=== PATIENT | female | born 1955 | race Caucasian/White ===

== ENCOUNTER 2024-07-21 13:17 | Emergency (ER) | payer SELFPAY ==
--- OUTSIDE RECORDS SUMMARY | 2024-07-21 13:19 | XMS_ITS | Clinical Summary ---
Author Organization [facility] Address [address] [place] [address] Care Team Providers Care Nailhead Puncher Name Role Phone Jodi Swain DDS Primary Care Provider [phone] Source Comments PLEASE NOTE, if this patient is a minor, it may be UNLAWFUL to discuss sensitive information that is contained in these records (such as FAMILY PLANNING, MENTAL HEALTH or SUBSTANCE ABUSE) with the minor patient's parent or other person without the patient's specific authorization.[facility] Social History Tobacco Use Types Packs/Day Years Used Date Smoking Tobacco: Never Assessed Social Connections Answer Date Recorded Connectedness 0 12/21/2023 Financial Resource Strain Answer Date R ecorded Financial Resource Strain 0 2022 Stress Answer Date Recorded Stress 0 03/21/2023 Physical Activity Answer Date Recorded Physical Activity 0 03/21/2023 Food Insecurity Answer Date Recorded Food 0 01/01/2024 Transportation Needs Answer Date Record ed Transportation 0 03/21/2023 Housing Stability Answer Date Recorded Housing 0 03/21/2023 Safety and Environment Answer Date Dexter rded Safety 0 03/21/2023 Utilities Answer Date Recorded Utilities 0 03/21/2023 Employment Answer Date Recorded Stress 0 12/21/2023 Comments Unknown Sex and Gender Information Value Date Recorded Sex Assigned at Not on file Legal Sex Female 12:11 PM PST Gender Identity Female 05/06/2023 3:14 PM PST Sexual Orientation Straight 05/06/2023 3: 14 PM PST Plan of Treatment Health Maintenance Due Date Last Done Comments Hepatitis C Screening 1955 Lipid Screening 1955 Tobacco Screening 1956 Hypertension Screening (#1) 1974 Imm-DTaP/Tdap/Td (1 - Tdap) 09/15/1975 Breast Cancer Screening (Mammogram) 1996 CT Colonography 2001 Colonoscopy 2001 Colorectal Cancer Screening 2001 FIT/gFOBT 2001 Fecal DNA 2001 Flexible Sigmoidoscopy 2001 Imm-Pneumococcal 65+ (1 of 1 - PCV) 2006 Imm-Zoster, Recombinant (1 of 2) 2006 Bone Density Screening 2021 Falls Prevention 2021 [id number] ( season) 2023 Imm-Influenza (#1) 2023 Alcohol and Drug Screen 04/07/2024 Depression Annual Screen 04/07/2024 Diabetes Screening 06/08/2027 06/07/2024, 1 04/12/2023, 11/11/2023, Additional history exists Care Teams Nailhead Puncher Relationship Specialty Start Date End Date Jodi Swain DDS [address] [place] [id number] PCP - General 05/06/23
--- OUTSIDE RECORDS SUMMARY | 2024-07-21 13:19 | XMS_ITS | Clinical Summary ---
Author Organization [facility] [facility] Address Formerly [facility] [place] [address] Care Team Providers Care Beauty Sales Consultant Name Role Phone Cassy Ramírez Primary Care Provider [facility] Unavailable Modesto Singer HUMAN RESOURCES SERVICES SPECIALIST Unavailable [phone] Sofia Ordoñez MD Unavailable [phone] Stacie Carballo NP Unavailable Allergies No known active allergies Medications aspirin enteric coated 81 mg tabletIndications :Diabetes mellitus type II TAKE ONE TABLET BY MOUTH DAILY WITH A MEAL 100 tablet 3 11/15/19 11 Active Additional Information Patient taking differently:81 mg Oral DAILY WITH MEAL,patient not taking, Reported on 07/13/2024 blood sugar diagnostic (GLUCOCARD 01 SENSOR PLUS) stripIndications: Type 2 diabetes mellitus with diabetic retinopathy and without macular edema, unspecified retinopathy severity Test once daily 50 Each PRN 08/04/19 16 Active MEDICAL SUPPLY, MISCELLANEOUS (GRADUATED COMPRESSION STOCKINGS)Indicat ions:Varicose veins of legs Length: thigh Strength: 20-30 mmHg 1 Packet 11 05/14/19 18 Active acetaminophen (TYLENOL) 325 mg tablet Take 2 tablets by mouth every 4 hours if needed. Max acetaminophen dose: 4000mg in 24 hrs. 01/07/20 18 Active WalkerIndications :Closed fracture of olecranon process of left ulna, sequela,Closed nondisplaced fracture of left patella with routine healing, unspecified fracture morphology, subsequent encounter Platform for left side of walker and Walker with front wheels for home use. 1 Device 01/20/20 18 Active Diabetic ShoeIndications:F oot callus,Diabetes mellitus type 2, uncontrolled, with complications,Juan ateral leg edema As directed. 1 Device 08/05/19 19 Active multivitamin (MVI) tabletIndications :Diabetes mellitus type 2, uncontrolled, with complications Take 1 tablet by mouth once daily. 90 tablet 3 08/23/19 20 Active multivitamin (MVI) tabletIndications :Controlled type 2 diabetes mellitus without complication, without long-term current use of insulin (HC) Take 1 Tablet by mouth once daily. 90 Tablet 3 08/06/19 24 Active losartan (COZAAR) 100 mg tabletIndications :Hypertension, unspecified type Take 1 Tablet (100 mg) by mouth once daily. 90 Tablet 3 11/11/19 24 Active prednisoLONE acetate 1% ophthalmic (Pred Forte) suspensionIndicat ions:Nuclear sclerotic cataract of left eye Start drops in affected eye after surgery 12/29/23 Left eye. One drop four times a day for three weeks. 5 mL 1 12/30/19 24 Active ketorolac 0.4 % (ACULAR LS) 0.4 % ophthalmic solutionIndicatio ns:Nuclear sclerotic cataract of left eye Start drops in affected eye after surgery Left. One drops four times a day for three weeks. 5 mL 1 12/30/19 24 Active glipiZIDE (GLUCOTROL) 10 mg tabletIndications :Controlled type 2 diabetes mellitus without complication, without long-term current use of insulin (HC) TAKE 1 TABLET BY MOUTH TWICE DAILY BEFORE A MEAL. Dose increase 180 Tablet 1 02/11/20 24 Active metFORMIN (GLUCOPHAGE) 1,000 mg tabletIndications :Controlled type 2 diabetes mellitus without complication, without long-term current use of insulin (HC) Take 1 Tablet (1,000 mg) by mouth two times daily with meals. 180 Tablet 1 02/11/20 24 Active pioglitazone (ACTOS) 15 mg tabletIndications :Controlled type 2 diabetes mellitus without complication, without long-term current use of insulin (HC) Take 1 Tablet (15 mg) by mouth once daily. 90 Tablet 1 02/11/20 24 Active simvastatin (ZOCOR) 40 mg tabletIndications :Hyperlipidemia, unspecified hyperlipidemia type Take 1 Tablet (40 mg) by mouth at bedtime. 90 Tablet 1 02/11/20 24 Active hydroCHLOROthiazi de 25 mg tabletIndications :Hypertension, unspecified type Take 1 Tablet (25 mg) by mouth once daily. 90 Tablet 1 02/11/20 24 Active gabapentin (NEURONTIN) 100 mg capsuleIndication s:Foot pain, left Take 1 Capsule (100 mg) by mouth at bedtime. 90 Capsule 1 02/11/20 24 Active Additional Information Patient taking differently:100 mg Oral BEDTIME,Patient states not taking due not sleeping, Reported on 07/13/2024 pramipexole (MIRAPEX) 0.125 mg tabletIndications :RLS (restless legs syndrome) 1-2 tab by mouth 2-3 hours before bedtime 90 Tablet 3 04/28/19 25 Active oxyCODONE-acetami nophen (PERCOCET) 5-325 mg per tabletIndications :Invasive ductal carcinoma of breast, female, left (HC) Take 1 Tablet by mouth every 6 hours if needed for Pain. Max acetaminophen dose: 4000mg in 24 hrs. 15 Tablet 5 9:02 AM DISTRIBUTION TRANSFORMER ASSEMBLER 05/05/19 25 Active Additional Information Patient taking differently:1 Tablet Oral Q 6H PRN, Pain, Max acetaminophen dose: 4000mg in 24 hrs.not currently taking, Reported on 07/13/2024 ibuprofen (ADVIL; MOTRIN) 600 mg tabletIndications :Invasive ductal carcinoma of breast, female, left (HC) Take 1 Tablet (600 mg) by mouth every 6 hours if needed for Pain. Maximum of 3200 mg in 24 hours. 30 Tablet 5 9:02 AM DISTRIBUTION TRANSFORMER ASSEMBLER 05/05/19 25 Active sennosides-docusa te (SENOKOT S) (8.6-50 mg) tabletIndications :Invasive ductal carcinoma of breast, female, left (HC) Take 1 Tablet by mouth two times daily. 20 Tablet 5 9:02 AM DISTRIBUTION TRANSFORMER ASSEMBLER 05/05/19 25 Active Additional Information Patient taking differently:1 Tablet Oral BID,Patient states doesn't need, Reported on 07/13/2024 sennosides-docusa te, 8.6-50 mg, (SENNA-S) 8.6-50 mg tablet Take 1 tablet by mouth 2 times daily. 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 associated with type 2 diabetes mellitus 04/28/2024 Invasive ductal carcinoma of breast, female, lef t 04/09/2024 Hyperopia of both eyes with astigmatism and pres byopia 12/03/2021 Pseudophakia, right eye 12/03/2021 Cortical senile cataract, left 12/03/2021 Venous insufficiency 05/02/2020 Controlled type 2 diabetes m ellitus without complication, without long-term current use of insulin 05/20/2018 Controlled type 2 diabetes m ellitus without complication, without long-term current use of insulin 05/20/2018 Controlled type 2 diabetes m ellitus without complication, without long-term current use of insulin 03/10/2018 Onychomycosis 06/24/2017 Arcus senilis 05/24/2013 Osteoporosis 01/19/2013 HTN (hypertension) 05/01/2010 Proximal humerus fracture 04/18/2010 Diabetes mellitus, type 2 09/05/2009 Resolved Problems Problem Noted Date Diagnosed Date Resolved Date History of 2019 novel argueta virus disease (COVID-19) 02/13/2020 02/13/2020 Mild nonproliferative diabet ic retinopathy(362.04) 10/21/2014 06/28/2022 Encounters Date Type Department Care Team Description 07/19/2024 3:30 PM CDT - 07/19/2024 11:59 PM CDT Hospital Encounter [facility] Rad[facility] Oncology - [facility] [address] [place] [address] Herlinda Escalante MD Malignant neoplasm of lower-inner quadrant of left breast in female, estrogen receptor positive (HC) (Primary Dx) 07/19/2024 3:28 PM CDT - 07/19/2024 3:29 PM CDT Hospital Encounter [facility] Radiation Oncology - [address] [address] Herlinda Escalante MD Malignant neoplasm of lower-inner quadrant of left female breast, unspecified estrogen receptor status (HC) 07/19/2024 1:59 PM CDT - 07/19/2024 3:27 PM CDT Hospital Encounter [facility] Radiation Oncology - [facility] [address] [place] [address] Herlinda Escalante MD Malignant neoplasm of lower-inner quadrant of left breast in female, estrogen receptor positive (HC) (Primary Dx); Malignant neoplasm of left female breast, unspecified estrogen receptor status, unspecified site of breast (HC) 07/19/2024 Orders Only [facility] Rad[facility] Oncology - [facility] [address] [facility] [address] [place] [address] Herlinda Escalante MD <No scans attached> 07/19/2024 Travel 07/13/2024 1:15 PM CDT Office Visit [address] [address] De Garcia DPM Consult (Left foot ulcer) 07/13/2024 Travel 07/09/2024 Telephone [facility] Radiation Oncology [facility] [address] [place] [address] Herlinda Escalante MD Appointment 07/08/2024 2:30 PM CDT Office Visit [address] [address] Sofia Garcia DO Follow Up (discuss options) 07/08/2024 Travel 06/29/2024 Telephone [facility] [address] [place] [address] Sofia Garcia DO schedule appt with Dr Arguello 06/22/2024 3:00 PM CDT Office Visit [facility] [address] [place] [address] Sofia Ordoñez MD Consult 06/22/2024 Travel 06/08/2024 Telephone [facility] [address] [place] [address] Cassy Ramírez PA Results 06/07/2024 7:30 AM DISTRIBUTION TRANSFORMER ASSEMBLER Office Visit [facility] [address] [place] [address] Cassy Ramírez PA Diabetes (3 month check - unable to afford Pioglitazone); Foot Problem (Continued L foot/heel pain) 06/07/2024 Travel 05/27/2024 8:15 AM DISTRIBUTION TRANSFORMER ASSEMBLER Ancillary Procedure [facility] [address] [place] [address] 05/27/2024 7:30 AM DISTRIBUTION TRANSFORMER ASSEMBLER Office Visit [facility] [address] [place] [address] Joe Washington MD Foot Problem (LT foot - hit heel about a month- feeling painful and hard to walk ) 05/27/2024 Travel 05/20/2024 3:30 PM DISTRIBUTION TRANSFORMER ASSEMBLER Office Visit [address] [address] Sofia Garcia DO Post-op (post op lumpectomy) 05/20/2024 Travel 05/20/2024 Telephone [facility] Cancer [facility] [address] [place] [address] [place], [facility] Cancer Referral 05/06/2024 Patient Outreach [facility] [address] [place] [address] Stephanie Rae assistant professor of biochemistry Followup (Magnetic seed guided left breast lumpectomy with sentinel lymph node biopsy) 05/05/2024 1:13 PM DISTRIBUTION TRANSFORMER ASSEMBLER Anesthesia Event [facility] [address] [place] [address] Erlinda Juarez CRNA 05/05/2024 12:50 PM DISTRIBUTION TRANSFORMER ASSEMBLER - 05/05/2024 3:45 PM DISTRIBUTION TRANSFORMER ASSEMBLER Surgery [facility] [address] [place] [address] Sofia Garcia DO Magnetic seed guided left breast lumpectomy with sentinel lymph node biopsy 05/05/2024 9:30 AM DISTRIBUTION TRANSFORMER ASSEMBLER - 05/05/2024 6:35 PM DISTRIBUTION TRANSFORMER ASSEMBLER Hospital Encounter [facility] [address] [place] [address] Sofia Garcia DO Invasive ductal carcinoma of breast, female, left (HC) (Primary Dx); Invasive ductal carcinoma of breast, left (HC) Discharge Disposition: Home Self Care 05/04/2024 8:00 AM DISTRIBUTION TRANSFORMER ASSEMBLER - 05/04/2024 11:59 PM DISTRIBUTION TRANSFORMER ASSEMBLER Hospital Encounter [facility] [address] [place] [address] Sofia Garcia DO Invasive ductal carcinoma of breast, left (HC) 05/04/2024 Travel 04/28/2024 11:50 AM DISTRIBUTION TRANSFORMER ASSEMBLER Office Visit [facility] [address] [place] [address] Cassy Ramírez PA Preoperative Exam (lumpectomy) 04/28/2024 Travel from Last 3 Months Immunizations Immunization Administration Dates Next Due COVID-19 vaccine (Pfizer-Bio NTech 30mcg/0.3mL) 12YO+ BRYANT-SUCROSE PF, MDV 10/22/2021 COVID-19 vaccine (Pfizer-Bio NTech 30mcg/0.3mL) PF, MDV 05/17/2021,07/22/2020,07/01/2020 Hepatitis B (Adult) 10/13/2013,12/16/2012 Influenza, IIV3 (Age >=3 years) 12/16/2012,02/05 Influenza, IIV4 02/03/2019, 7,02/20/2016,2013 Influenza, IIV4 (=>6mos) MDV 01/05/2018 Pneumococcal conj 13-Valent (Prevnar 13) 08/19/2018 Tdap 09/05/2009 Family History Medical History Relation Name Comments Diabetes Brother 3 1/2 brothers, different father Good Health Mother healthy, age 90 Anesthesia Problem No Family History Blood Disease No Family History Cancer-breast No Family History Cancer-ovarian No Family History Relation Name Status Comments Brother Father accident Mother Social History Tobacco Use Types Packs/Day Years Used Date Smoking Tobacco: Former Cigarettes 0.3 20 0 04/07/1991 - 04/07/2011 Smokeless Tobacco: Never Tobacco Cessation:Counseling Given: Yes Alcohol Use Standard Drinks/Week Comments No 0 (1 standard drink = 0.6 oz pur e alcohol) PHQ-2 Answer Date Recorded PHQ-2 Score 1 06/07/2018 Financial Resource Strain Answer Date R ecorded Difficulty of Paying Living Expenses Not on file 04/07/2021 Difficulty of Paying Living Expenses Not on file 04/07/2021 Food Insecurity Answer Date Recorded Do you worry your food will run out before you are able to buy more? 2 08/06/2023 Transportation Needs Answer Date Record ed Does lack of transportation keep you from medica l appointments? 2 08/06/2023 Does lack of transportation keep you from work, meetings or getting things that you need? 2 08/06/2023 Housing Stability Answer Date Recorded What is your housing situation today? 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 on file Not on file Not on file Obstetrics History Para Term AB IAB SAB Ectopic Multiple Livin g Live Births 7 7 7 5 Date Outcome GA Total Labor Labor/2nd/3rd Weight Sex Type Anes PTL Emily A1 A5 Name Clin Term Term Term Term Term Term Term Last Filed Vital Signs Vital Sign Reading Time Taken Comments Blood Pressure 149/80 07/13/2024 1:26 PM CDT Pulse 81 07/13/2024 1:26 PM CDT Temperature 36.6 C (97.9 F) 06/22/2024 3:12 PM CDT Respiratory Rate 16 06/22/2024 3:12 PM CDT Oxygen Saturation 98% 07/13/2024 1:26 PM CDT Inhaled Oxygen Concentration - - Weight 57.1 kg (125 lb 12.8 oz) 07/19/2024 3:27 PM CDT Height 152.7 cm (5' 0.12) 06/22/2024 3:13 PM CD T Body Mass Index 24.47 06/22/2024 3:13 PM CDT Plan of Treatment Upcoming Encounters Date Type Department Care Team (Late st Contact Info) Description 07/28/2024 3:15 PM CDT Appointment [facility] [address] [place] [address] Urbano Aparna, PT [address] [place] [address] 07/29/2024 3:30 PM CDT Appointment [facility] Radiation Oncology [address] [address] Herlinda Escalante MD [address] [address] 07/29/2024 4:00 PM CDT Appointment [facility] Radiation Oncology [address] [address] Herlinda Escalante MD [address] [address] 07/30/2024 3:30 PM CDT Appointment [facility] Radiation Oncology [address] [address] Herlinda Escalante MD [address] [address] 08/02/2024 2:45 PM CDT Appointment [facility] Radiation Oncology [address] [address] Herlinda Escalante MD [address] [address] 08/03/2024 3:30 PM CDT Appointment [facility] Radiation Oncology [address] [address] Herlinda Escalante MD [address] [address] 08/04/2024 3:00 PM CDT Appointment [facility] Radiation Oncology [address] [address] Herlinda Escalante MD [address] [address] 08/05/2024 2:45 PM CDT Appointment [facility] Radiation Oncology - [address] [address] Herlinda Escalante MD [address] [address] 08/05/2024 3:15 PM CDT Appointment [facility] Radiation Oncology - [address] [address] Herlinda Escalante MD [address] [address] 08/06/2024 3:30 PM CDT Appointment [facility] Radiation Oncology [address] [address] Herlinda Escalante MD [address] [address] 08/09/2024 3:30 PM CDT Appointment [facility] Radiation Oncology [address] [address] Herlinda Escalante MD [address] [address] 08/10/2024 3:30 PM CDT Office Visit [facility] [address] [place] [address] De Garcia DPM [address] [place] [address] 08/10/2024 3:30 PM CDT Appointment [facility] Radiation Oncology - [facility] [address] [place] [address] Herlinda Escalante MD [address] [id number] [place] [address] 09/07/2024 2:45 PM CDT Appointment [facility] Radiation Oncology [facility] [address] [place] [address] Herlinda Escalante MD [address] [address] 09/21/2024 1:45 PM CDT Office Visit [facility] [address] [place] [phone] Stacie Carballo, MANAGER OB [address] [place] [address] Health Maintenance Due Date Last Done Comments Zoster (shingles) series for age 50+ (1 of 2) 09/15/1975 RSV vaccine for adults or (1 - Risk 60-74 years 1-dose series) 2016 Pneumococcal series for age 50+ (2 of 2 - PPSV23) 10/14/2018 08/19/2018 Depression screening for age 12+ 05/20/2019 05/20/2018, 10/15/2016, 08/04/2015 Tetanus booster 09/06/2019 09/05/2009 Fecal testing non-DNA (FIT,FOBT,iFOBT) for age 45-75 09/11/2019 09/10/2018, 01/13/2017, 12/07/2015, Additional history exists DEXA/DXA scan for age 65+ 2021 04/15/2017, COVID-19 vaccine series ( season) 2023 10/22/2021, 05/17/2021, 07/22/2020, Additional history exists Influenza Vaccine (Season Ended) 2024 02/03/2019, 01/05/2018, 12/17/2016, Additional history exists Mammogram for age 45-75 03/10/2025 03/10/20, 02/24/2024, 11/19/2021, Additional history exists BMI (ht and wt on same day) for age 18+ 06/22/2025 06/22/2024, 12/24/2023, 01/03/2021, Additional history exists Lipids for age 45-75 08/05/2028 08/06/2023, 10/22/2021, 12/25/2020, Additional history exists Tdap Completed 09/05/2009 Hepatitis C screening for ag e 18-79 Completed 10/22/2021 Goals Goal Patient Goal Type Associated Problems Recent Progress Patient-Stated? Author BLOOD PRESSURE-MA INTAINS BP LESS THAN 130/80 Blood Pressure No Floresita Davis, ESTEB[employer] Medical Devices Implanted Type Area Hogshead Inspector Device Identifier Shelf Expiration Date Model / Serial / Lot Iol Anson Preload 1 Pc Clear 6mm 22.00 Diopter [employer]ecnis - [id number] Implanted:Qty: 1 on 12/29/2023 by Alfred Menon MD at [facility] Implants Left: Eye [employer] 02/14/2026 [id number] / [id number] / NA Lens Iol Zcb00 22.0 - [id number] Implanted:Qty: 1 on 01/09/2015 by Stefan Mcfarland MD at [facility] Right: Eye [employer] [id number] 11/05/2018 [id number] / [id number] / Procedures Procedure Name Priority Date/Time Associated Diagnosis Comments RADIATION ONCOLOGY CT THERAPY PLANNING Routine 07/19/2024 4:00 PM CDT Malignant neoplasm of lower-inner quadrant of left female breast, unspecified estrogen receptor status (HC) HEMOGLOBIN A1C MONITORING (POCT) Routine 06/07/2024 8:30 AM DISTRIBUTION TRANSFORMER ASSEMBLER Controlled type 2 diabetes mellitus without complication, without long-term current use of insulin (HC) XR FOOT 3 VIEWS LEFT Routine 05/27/2024 8:14 AM DISTRIBUTION TRANSFORMER ASSEMBLER Foot ulcer, left, with unspecified severity (HC) XR BREAST SPECIMEN LEFT MARY 05/05/2024 2:13 PM DISTRIBUTION TRANSFORMER ASSEMBLER Invasive ductal carcinoma of breast, left (HC) PATH TISSUE EXAM Today 05/05/2024 2:05 PM DISTRIBUTION TRANSFORMER ASSEMBLER PERIPHERAL BLOCK Routine 05/05/2024 1:31 PM DISTRIBUTION TRANSFORMER ASSEMBLER SUPRAGLOTTIC-LMA Routine 05/05/2024 1:30 PM DISTRIBUTION TRANSFORMER ASSEMBLER GLUCOSE METER Routine 05/05/2024 1:09 PM DISTRIBUTION TRANSFORMER ASSEMBLER LUMPECTOMY BREAST WITH SENTINEL LYMPH NODE BIOPSY Elective 05/05/2024 12:58 PM DISTRIBUTION TRANSFORMER ASSEMBLER Invasive ductal carcinoma of breast, left (HC) Case Notes PATHOLOGY: path confirmed 1030 startMAGSEED: 05/04 @8AMSENTINEL LYMPH NODE INJ: 05/05 @930SPECIMEN MAMMOGRAM: 05/05 @130rep aware of 1030 start-04/12/24 BEDSIDE US STUDY ARCHIVE Routine 05/05/2024 12:18 PM DISTRIBUTION TRANSFORMER ASSEMBLER GLUCOSE METER Routine 05/05/2024 11:57 AM DISTRIBUTION TRANSFORMER ASSEMBLER BEDSIDE US STUDY ARCHIVE Routine 05/05/2024 11:32 AM DISTRIBUTION TRANSFORMER ASSEMBLER GLUCOSE METER Routine 05/05/2024 10:53 AM DISTRIBUTION TRANSFORMER ASSEMBLER NM INJ SENTINEL NODE BREAST LEFT MARY 05/05/2024 9:55 AM DISTRIBUTION TRANSFORMER ASSEMBLER Invasive ductal carcinoma of breast, left (HC) BEDSIDE US STUDY ARCHIVE Routine 05/05/2024 9:38 AM DISTRIBUTION TRANSFORMER ASSEMBLER XR MAMMO POST CLIP PLCMT LT Routine 05/04/2024 9:43 AM DISTRIBUTION TRANSFORMER ASSEMBLER Invasive ductal carcinoma of breast, left (HC) US BREAST MAGNETIC SEED LOCALIZATION LEFT Routine 05/04/2024 9:38 AM DISTRIBUTION TRANSFORMER ASSEMBLER Invasive ductal carcinoma of breast, left (HC) BASIC METABOLIC PANEL Routine 04/28/2024 12:33 PM DISTRIBUTION TRANSFORMER ASSEMBLER Preop general physical exam Controlled type 2 diabetes mellitus without complication, without long-term current use of insulin (HC) HEMOGLOBIN Routine 04/28/2024 12:33 PM DISTRIBUTION TRANSFORMER ASSEMBLER Preop general physical exam Controlled type 2 diabetes mellitus without complication, without long-term current use of insulin (HC) XR MAMMO ARTURO UNI ADDL VIEWS LEFT MARY 03/10/2024 2:13 PM DISTRIBUTION TRANSFORMER ASSEMBLER Abnormal mammogram LIPID PANEL W REFLEX MEASURED LDL Routine 08/06/2023 12:22 PM CDT Hyperlipidemia, unspecified hyperlipidemia type ANTI HCV Add On 10/22/2021 9:11 AM CDT Need for hepatitis C screening test OCCULT BLOOD IFOBT STOOL Routine 09/10/2018 12:00 PM CDT Screening for colon cancer XR DXA BONE DENSITY 2 SITES AXIAL Routine 04/15/2017 11:35 AM DISTRIBUTION TRANSFORMER ASSEMBLER Osteoporosis, unspecified osteoporosis type, unspecified pathological fracture presence from Last 3 Months or Most Recently Relevant to Health Maintenance Results * RADIATION ONCOLOGY CT THERAPY PLANNING (07/19/2024 4:00 PM CDT) Narrative Silent, Sched - 07/19/2024 4:01 PM CDT The result for this exam is either scanned and attached to this order or are included in the ordering provider's NOTES from the patient's Office Visit or Surgical procedure from this date. Herlinda Escalante MD CT Final Result * (ABNORMAL) HEMOGLOBIN A1C MONITORING (POCT) (06/07/2024 8:30 AM DISTRIBUTION TRANSFORMER ASSEMBLER) POC HEMOGLOBIN A1C 8.6(H) <6.0 % OF TOTAL HGB [facility] Comment: Any point of care results exhibiting inconsistency with the patient's clinical status should be repeated using a different testing method. Blood BLOOD SPECIMEN / Unknown 06/07/2024 8:30 AM DISTRIBUTION TRANSFORMER ASSEMBLER 06/07/2024 8:30 AM DISTRIBUTION TRANSFORMER ASSEMBLER us Cassy MCKEON CHEMISTRY Final R esult [facility] [address] [place] [address], [facility] [address] [place] [address] * XR FOOT 3 VIEWS LEFT (05/27/2024 8:14 AM DISTRIBUTION TRANSFORMER ASSEMBLER) Anatomical Region Laterality Modality FEET, FOOT L Computed Radiogr aphy 05/28/2024 8:16 AM DISTRIBUTION TRANSFORMER ASSEMBLER Narrative 05/28/2024 8:16 AM DISTRIBUTION TRANSFORMER ASSEMBLER For Patients: As a result of the Cures Act, medical imaging exams and procedure reports are released immediately into your electronic medical record. You may view this report before your referring provider. If you have questions, please contact your health care provider. INDICATION: Foot ulcer. FINDINGS: Three views of the left foot show no evidence of acute fracture or dislocation. Significant diffuse osteopenia. Plantar and posterior calcaneal spurs. No other bony or soft tissue abnormalities identified. Dictated by Bin Leonardo MD @ 05/28/2024 8:16:26 AM (Electronically Signed) Procedure Note Bin Leonardo MD - 05/28/2024 For Patients: As a result of the Cures Act, medical imagingexams and procedure reports are released immediately into your electronicmedical record. You may view this report before your referring provider.If you have questions, please contact your health care provider. INDICATION: Foot ulcer. FINDINGS: Three views of the left foot show no evidence of acute fracture ordislocation. Significant diffuse osteopenia. Plantar and posterior calcaneal spurs. No other bony or soft tissue abnormalities identified. Dictated by Bin Leonardo MD @ 05/28/2024 8:16:26 AM (Electronically Signed) us Joe Washington MD GENERAL IMAGING Final Result * XR BREAST SPECIMEN LEFT (05/05/2024 2:13 PM DISTRIBUTION TRANSFORMER [employer]SEMBLER) Anatomical Region Laterality Modality Breast Left N/A Mammography 05/06/2024 7:39 AM [employer]ION TRANSFORMER [employer]SEMBLER Narrative 05/06/2024 10:43 AM DIST[employer]BUTION TRANSFORMER ASSEMBLER For Patients: As a result of the Cures Act, medical imaging exams and procedure reports are released immediately into your electronic medical record. You may view this report before your referring provider. If you have questions, please contact your health care provider. XR BREAST SPECIMEN LEFT INDICATION: LEFT breast IDC. Lumpectomy. TECHNIQUE: Lumpectomy specimen radiograph. FINDINGS: A single specimen contains the prior biopsy clip which is known to lie directly within the previously biopsied lesion, and the Mag seed localization clip. Dictated by: Solitario Hyde MD @05/06/2024 7:39:17 AM us Sofia Garcia DO MAMMO Final Res ult * PATH TISSUE EXAM (05/05/2024 2:05 PM DISTRIBUTION TRANSFORMER ASSEMBLER) Case Report Pathology Report Case: [id number] Authorizing Provider: Sofia Garcia DO Collected: 05/05/2024 1405 Ordering Location: [facility] Received: 05/05/[address] [place] [address] Pathologist: Dinh Henning MD Specimens: A) - Left Breast Mass B) - Left Axillary Burt Lymph Node 1, left axillary sentinel lymph node 35, axillary tissue C) - Left Breast Mass, new deep margin- double clip deep, single clip superior, triple clip lateral 06/18/2024 8:14 AM CDT [facility]-C ENTRAL LABORATORY Amendment 06/18/2024 - Tissue was submitted to [facility] for Oncotype DX for Breast Cancer testing. Please see attached scanned report. 06/18/2024 8:14 AM CDT [facility] EN[facility]AL [facility] Final Diagnosis A) LEFT BREAST, LUMPECTOMY: 1. 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 Size: 16 mm b. Core biopsy site is associated with tumor 2. Ductal carcinoma in situ (DCIS), nuclear grade 2, Solid type 3. Margins: a. Invasive carcinoma is 2.5 mm from the anterior margin b. DCIS is less than 1 mm from the anterior margin (1.5 mm span) and less than 1 mm from the superior margin (less than 1 mm span) 4. Breast Ancillary Testing: Performed on prior case ([id number]) b. HER2 by IHC: Equivocal (2+ by manual morphometry) HER2 by FISH: Negative HER2/CEP17 ratio: 1.22 HER2 signals/cell: 3.50 CEP17 signals/cell: 2.86 c. Ki-67: 5% by image analysis B) LEFT AXILLARY SENTINEL LYMPH NODE, 1, BIOPSY: 1. Negative for malignancy in 1 lymph node (0/1) C) LEFT BREAST, POSTERIOR MARGIN, RE-EXCISION WITH EVALUATION OF SURGICAL MARGINS: 1. Atypical ductal hyperplasia (ADH) 2. Proliferative fibrocystic change 3. Negative for DCIS and invasive malignancy 06/18/2024 8:14 AM CDT [facility] Amendment electronically signed by Dinh Henning MD on 06/18/2024 at 0814 CDT at 1504 [employer]BUTION TRANSFORM[employer]SEMBLER Comment Per the surgeon operative report, the margins seem to close at both the anterior and posterior/deep margins according to pathology. Therefore additional deep margins were taken down to the pectoralis fascia and because of the mass had been dissected away from the skin, no additional margins were taken at the anterior portion. 06/18/2024 8:14 AM CDT [facility] EN[facility] Clinical Information Left breast IDC gr II, 9 mm by imaging ([id number]) 06/18/2024 8:14 AM CDT [facility] Gross Description A) Received fresh, labeled with the patient's name and left breast mass, is a 14 gram, 4.7 (ML) x 3.5 (SI) x 1.5 (AP) cm magnetic seed breast lumpectomy specimen. The vision clip is identified within the specimen. The specimen is inked by the surgical staff in the OR as follows: Anterior--Frederick Posterior--Black Superior--Blue Inferior--Red Medial--Green Lateral--Yellow The specimen is serially sectioned from medial to lateral into 9 slices revealing a 0.8 (ML) x 0.6 (AP) x 0.5 (SI) cm ureña-white ill-defined mass within slice(s) 3-4 with the following characteristics: Biopsy site change: Present in slices 3-4 Biopsy clip: Is grossly identified Closest margin: Anterior Distance to margins: Anterior: 0.2 cm Posterior: 0.7 cm Inferior: 1.0 cm Superior: 2.0 cm Medial: 1.5 cm Lateral: 2.0 cm The remaining cut surfaces consist of approximately 95% adipose tissue and 5% fibrous tissue. No other lesions are identified. The specimen is submitted entirely: 1. Entire slice 1, medial margin perpendicular 2-3. Composite slice 2 4-5. Composite slice 3, mass 6-7. Composite slice 4, mass to nearest anterior margin in 7 8-9. Composite slice 5 10. Composite slice 6 11. Composite slice 7 12. Composite slice 8 13. Entire slice 9, lateral margin perpendicular An annotated photograph including sections taken is uploaded to the case. Time removed from patient: 1405 Time placed in formalin: 1435 Date removed and placed in formalin: 05/05/2024 Cold ischemic time < 60 minutes. The specimen was fixed in formalin for a minimum of 6 hours and not longer than 72 hours. TTP 05/06/2024 B) Received in formalin, labeled with the patient's name and left axillary sentinel lymph node 1, lymph node 35, axillary tissue, is a 3.0 x 2.8 x 1.4 cm aggregate of yellow-ureña adipose tissue. Within the adipose tissue a 1.2 x 0.8 x 0.7 cm possible lymph node is identified. A previously biopsy clip is not identified. Specimen section into 4 slices and entirely submitted in 1 cassette. Time removed from patient: 1455 Time placed in formalin: 1455 Date removed and placed in formalin: 05/05/2024 Cold ischemic time < 60 minutes. The specimen was fixed in formalin for a minimum of 6 hours and not longer than 72 hours. KMN 05/07/2024 C) Received in formalin, labeled with the patient's name and left breast mass, new deep margin double clip deep, single clip superior, triple clip lateral, is a 4.0 x 2.5 x 1.2 cm portion yellow-ureña fibroadipose tissue. The specimen is previously oriented with clips, 1 clip is superior, double clip deep triple clip lateral. The specimen is inked as follows: Anterior--Frederick Posterior--Black Superior--Blue Inferior--Red Medial--Green Lateral--Yellow The cut surface consists of 80% yellow-ureña adipose tissue and 20% aviles-white fibrous tissue. No lesions are identified. The specimen is serially sectioned and entirely submitted in 7 cassettes. Time removed from patient: 1458 Time placed in formalin: 1500 Date removed and placed in formalin: 05/05/2024 Cold ischemic time < 60 minutes. The specimen was fixed in formalin for a minimum of 6 hours and not longer than 72 hours. KMN 05/07/2024 06/18/2024 8:14 AM [facility] [place] [facility] Intraoperative Consultation A) LEFT BREAST, LUMPECTOMY, INTRAOPERATIVE CONSULTATION (Gross Evaluation Only): 1. Tumor grossly identified 2. Biopsy site change is identified grossly 3. Margins are grossly negative by 2 mm (the closest margin is anterior) Joe Mir MD, 05/05/2024 2:32 PM Intraoperative consultation, which may have included frozen section preparation, gross specimen examination, and/or cytology touch imprints/smears, was performed by a pathologist during the surgical procedure. This testing was performed at: [address] [address] 06/18/2024 8:14 AM [facility] Microscopic Description The final diagnosis is based on microscopic examination of appropriate sections of all specimens. Immunostains were performed on block C6 and reveal the following results: CK5/6: Variable staining in area of interest ER: Variable staining in area of interest 06/18/2024 8:14 AM [facility] [place] [facility] SYNOPTIC REPORTING INVASIVE CARCINOMA OF THE BREAST: Resection INVASIVE CARCINOMA OF THE BREAST: RESECTION - All Specimens 8th Edition - Protocol posted: 09/24/2023 SPECIMEN Procedure: Excision (less than total mastectomy) Specimen Laterality: Left TUMOR Tumor Site: Clock position : 8 o'clock : 9 o'clock Tumor Site: Distance from nipple (Centimeters): 4 cm Histologic Type: Invasive carcinoma of no special type (ductal) Histologic Grade (Jessica Histologic Score): Glandular (Acinar) / Tubular Differentiation: Score 3 Nuclear Pleomorphism: Score 2 Mitotic Rate: Score 1 Overall Grade: Grade 2 (scores of 6 or 7) Tumor Size: Greatest dimension of largest invasive focus (Millimeters): 16 mm Tumor Focality: Single focus of invasive carcinoma Ductal Carcinoma In Situ (DCIS): Present : Negative for extensive intraductal component (EIC) Architectural Patterns: Solid Nuclear Grade: Grade II (intermediate) Necrosis: Present, focal (small foci or single cell necrosis) Lobular Carcinoma In Situ (LCIS): Not identified Lymphatic and / or Vascular Invasion: Not identified Dermal Lymphatic and / or Vascular Invasion: No skin present Treatment Effect in the Breast: No known presurgical therapy MARGINS Margin Status for Invasive Carcinoma: All margins negative for invasive carcinoma Distance from Invasive Carcinoma to Closest Margin: 2.5 mm Closest Margin(s) to Invasive Carcinoma: Anterior Margin Status for DCIS: All margins negative for DCIS Distance from DCIS to Closest Margin: Less than: 1 mm Closest Margin(s) to DCIS: Anterior Closest Margin(s) to DCIS: Superior REGIONAL LYMPH NODES Regional Lymph Node Status: : All regional lymph nodes negative for tumor Total Number of Lymph Nodes Examined (sentinel and non-sentinel): 1 Number of Burt Nodes Examined: 1 pTNM CLASSIFICATION (AJCC 8th Edition) Reporting of pT, pN, and (when applicable) pM categories is based on information available to the pathologist at the time the report is issued. As per the AJCC (Chapter 1, 8th Ed.) it is the managing physician's responsibility to establish the final pathologic stage based upon all pertinent information, including but potentially not limited to this pathology report. pT Category: pT1c pN Category: pN0 N Suffix: (sn) Comment(s): Block for possible future ancillary testing: A7 (biopsy site present); defer to core [id number] if indicated. 06/18/2024 8:14 AM CDT [facility]-C ENTRAL LAB[facility]ATORY Additional Information [facility] - [address], [place] [address] Immunohistochemi stry controls were reviewed and approved by the pathologist during this examination. 06/18/2024 8:14 AM CDT [facility]-C ENTRAL LABORATORY Tissue (Left Breast Mass) 05/05/2024 2:05 PM [employer]ION TR[employer]FORMER [employer]SEMBLER 05/05/2024 2:33 PM [employer]ION TRANSFORMER ASSEMBLER Tissue specimen (specimen) (Left Axillary Burt Lymph Node 1) 05/05/2024 2:55 PM [employer]ION TRANSFORMER ASSEMBLER 05/06/2024 5:10 PM DISTRIBUTION TRANSFORMER ASSEMBLER Tissue specimen (specimen) (Left Breast Mass) 05/05/2024 2:58 PM DIST[employer]ION TRANSFORMER ASSEMBLER 05/06/2024 5:10 PM DISTRIBUTION TRANSFORMER ASSEMBLER Sofia Garcia DO PATHOLOGY/CYTOLOGY Edited Result - Final [facility] LAB[facility]ORY [address] [place] [address], [facility] [address] [place] [address] * Peripheral Block (05/05/2024 1:31 PM DISTRIBUTION TRANSFORMER ASSEMBLER) Narrative Erlinda Juarez CRNA - 05/05/2024 1:31 PM DISTRIBUTION TRANSFORMER ASSEMBLER Erlinda Juarez CRNA 05/05/2024 1:32 PM Peripheral Block Patient location during procedure: OR Start time: 05/05/2024 1:20 PM End time: 05/05/2024 1:30 PM Reason for block: at surgeon's request and post-op pain Requesting provider: Sofia Garcia DO PreProcedure Checklist Completed: patient identified, site marked, risks and benefits discussed, surgical consent, timeout performed and hand hygiene performed. Peripheral Block Patient position: supine Prep: chloraprep Patient monitoring: continuous pulse oximetry, ECG and blood pressure Supplemental O2: yes Neuro Status: heavy sedation Block type: PECS block, regional analgesia techniques Laterality: left Injection technique: single injection Injection assessment: incremental Needle Needle Details: echogenic Needle gauge: 20 G Needle length: 4 in Unilateral needle localization (ultrasound): live ultrasound guidance, needle and nerve visualized, local anesthetic visualized surrounding nerve, no pathologic findings, nerve appears normal and permanent images obtained. Catheter Catheter used:no Events: no complications. us Erlinda Juarez CRNA ANESTHESIA PX NOTE ORDER DOROTHY Final Result * Supraglottic (05/05/2024 1:30 PM DISTRIBUTION TRANSFORMER ASSEMBLER) Narrative Erlinda Juarez CRNA - 05/05/2024 1:30 PM DISTRIBUTION TRANSFORMER ASSEMBLER Erlinda Juarez CRNA 05/05/2024 1:31 PM Procedure: Supraglottic Patient location during procedure: OR Supraglottic Airway Properties Mask Ventilation: not attempted Type: i-gel Tube Size: 4 Placement Verification: auscultation and CO2 detection Assessment Assessment: atraumatic and dentition unchanged Airway Intervention: secured us Erlinda Juarez CRNA ANESTHESIA PX NOTE ORDER DOROTHY Final Result * (ABNORMAL) GLUCOSE METER (05/05/2024 1:09 PM DISTRIBUTION TRANSFORMER ASSEMBLER) Only the most recent of3 resultswithin the time period is included. GLUCOSE METER 175(H) 65 - 100 mg/dL 05/06/2024 6:13 AM DISTRIBUTION TRANSFORMER ASSEMBLER [facility] Blood BLOOD SPECIMEN / Unknown 05/05/2024 1:09 PM DISTRIBUTION TRANSFORMER ASSEMBLER 05/06/2024 6:13 AM DISTRIBUTION TRANSFORMER ASSEMBLER us Sofia Garcia DO CHEMISTRY Final Res ult [facility] [address] [id number] * NM INJ SENTINEL NODE BREAST LEFT (05/05/2024 9:55 AM DISTRIBUTION TRANSFORMER ASSEMBLER) Anatomical Region Laterality Modality Breast Left Nuclear Medicine Impressions 05/05/2024 4:45 PM DISTRIBUTION TRANSFORMER ASSEMBLER Technically successful left breast injection for sentinel lymph node scintigraphy. Myles Wilson M.D. Diagnostic/Nuclear Medicine Radiologist [employer] [email or web address] KARON/kamala / Narrative 05/05/2024 4:45 PM DISTRIBUTION TRANSFORMER ASSEMBLER For Patients: As a result of the Century Cures Act, medical imaging exams and procedure reports are released immediately into your electronic medical record. You may view this report before your referring provider. If you have questions, please contact your health care provider. NM SENTINEL LYMPH NODE INJECTION, 05/05/2024 INDICATION: Invasive ductal carcinoma of the left breast. Injection for sentinel lymph node scintigraphy. Informed consent was obtained by the on-site staff. The on-site discussed the risks and benefits of the procedure. The patient agreed to proceed. Utilizing sterile technique and 1 percent xylocaine for local anesthetic, 880 microcuries of technetium filtered sulfur colloid was injected within an intradermal location superolateral to the left nipple areolar complex. The patient tolerated the injection well. No immediate complications. No subsequent imaging. Sofia Garcia DO NM Final Res ult * XR MAMMO POST CLIP PLCMT LT (05/04/2024 9:43 AM DISTRIBUTION TRANSFORMER ASSEMBLER) Anatomical Region Laterality Modality BREASTS N/A Mammography Narrative 05/04/2024 12:13 PM DISTRIBUTION TRANSFORMER ASSEMBLER For Patients: As a result of the Cures Act, medical imaging exams and procedure reports are released immediately into your electronic medical record. You may view this report before your referring provider. If you have questions, please contact your health care provider. LEFT POST-LOCALIZATION MAMMOGRAM MAGNETIC SEED PLACEMENT, 05/04/2024 PLEASE SEE [id number] FOR REPORT OF LEFT BREAST MAGNETIC SEED LOCALIZATION SAME DAY. Sofia Garcia DO MAMMO Final Res ult * US BREAST MAGNETIC SEED LOCALIZATION LEFT (05/04/2024 9:38 AM DISTRIBUTION TRANSFORMER ASSEMBLER) Anatomical Region Laterality Modality Breast Left Ultrasound, Othe r 05/04/2024 10:3 1 AM DISTRIBUTION TRANSFORMER ASSEMBLER Impressions 05/04/2024 12:13 PM DISTRIBUTION TRANSFORMER ASSEMBLER Ultrasound-guided Magseed placement of a biopsy-proven malignancy at the 9 o'clock position LEFT breast. ACR not applicable Dictated by: Solitario Hyde MD @05/04/2024 10:31:33 AM/leilani Narrative 05/04/2024 12:13 PM DISTRIBUTION TRANSFORMER ASSEMBLER For Patients: As a result of the Cures Act, medical imaging exams and procedure reports are released immediately into your electronic medical record. You may view this report before your referring provider. If you have questions, please contact your health care provider. ULTRASOUND-GUIDED LEFT BREAST MAGNETIC SEED LOCALIZATION AND POST-LOCALIZATION MAMMOGRAM FOR MAGNETIC SEED PLACEMENT, 05/04/2024 INDICATION: LEFT breast malignancy. TECHNIQUE: Ultrasound-guided Magseed placement 9 o'clock position LEFT breast and postprocedural mammogram. FINDINGS: The examination and risks were fully explained to the patient through an deaf interpreter. A consent form was signed and a time-out conducted prior to initiating the study. Ultrasound localized the biopsy clip and lesion at the 9 o'clock position LEFT breast. Utilizing sterile procedure and 1 percent xylocaine as local anesthesia, a Magseed was placed on the anterior margin of the lesion. This was subsequently confirmed on the postprocedural mammogram. No bleeding at the puncture site or complication. The patient was stable at the termination of the procedure. Sofia Garcia [facility] Final Res ult * HEMOGLOBIN (04/28/2024 12:33 PM DISTRIBUTION TRANSFORMER ASSEMBLER) HEMOGLOBIN 12.9 11.7 - 15.5 g/dL Lola PirindolaLebron Brizuela Blood BLOOD SPECIMEN / Unknown 04/28/2024 12:33 PM DISTRIBUTION TRANSFORMER ASSEMBLER 04/28/2024 12:33 PM DISTRIBUTION TRANSFORMER ASSEMBLER Cassy MCKEON HEMATOLOGY Final R esult [employer] [facility] [address] [place] [address], [facility] [address] [place] [address] * (ABNORMAL) BASIC METABOLIC PANEL (04/28/2024 12:33 PM DISTRIBUTION TRANSFORMER ASSEMBLER) GLUCOSE 240(H) 65 - 99 mg/dL Lola Pirindola-W shahzad Brizuela Comment: Fasting reference interval For someone without known diabetes, a glucose value >125 mg/dL indicates that they may have diabetes and this should be confirmed with a follow-up test. UREA NITROGEN (BUN) 20 7 - 25 mg/dL Lola Pirindola-W shahzad Brizuela CREATININE 0.67 0.50 - 1.05 mg/dL [facility] EGFR 96 > OR = 60 mL/min/1. 73m2 [facility] BUN/CREATININE RATIO SEE NOTE: 6 - 22 (calc) [facility] Comment: Not Reported: BUN and Creatinine are within reference range. SODIUM 139 135 - 146 mmol/L [facility] POTASSIUM 4.0 3.5 - 5.3 mmol/L [facility] CHLORIDE 97(L) 98 - 110 mmol/L [facility] CARBON DIOXIDE 31 20 - 32 mmol/L [facility] ELECTROLYTE BALANCE 11 7 - 17 mmol/L (calc) [facility] CALCIUM 9.5 8.6 - 10.4 mg/dL [facility] Blood BLOOD SPECIMEN / Unknown 04/28/2024 12:33 PM DISTRIBUTION TRANSFORMER ASSEMBLER 04/28/2024 12:33 PM DISTRIBUTION TRANSFORMER ASSEMBLER us Cassy MCKEON CHEMISTRY Final R esult [employer] [facility] [address] [place] [address], [facility] [address] [place] [address] * XR MAMMO ARTURO UNI ADDL VIEWS LEFT (03/10/2024 2:13 PM DISTRIBUTION TRANSFORMER ASSEMBLER) Anatomical Region Laterality Modality BREASTS, Breast Left Mammography 03/10/2024 4:16 PM DISTRIBUTION TRANSFORMER ASSEMBLER Impressions 03/13/2024 10:07 AM DISTRIBUTION TRANSFORMER ASSEMBLER Indeterminate hypoechoic circumscribed lobular structure within the LEFT breast 8 o'clock 4 cm from the nipple, measuring 8 x 5 x 9 millimeters. Complicated cyst versus solid nodule. RECOMMENDATIONS: Ultrasound-guided core needle biopsy. BI-RADS Category 4: Suspicious Dictated by: Kei Ram MD @03/10/2024 4:16:54 PM/leilani PATIENTS: You will also receive a letter with your examination results in an easy to read format. If you have questions about your results, please contact your referring provider. Narrative 03/13/2024 10:07 AM DISTRIBUTION TRANSFORMER ASSEMBLER For Patients: As a result of the Century Cures Act, medical imaging exams and procedure reports are released immediately into your electronic medical record. You may view this report before your referring provider. If you have questions, please contact your health care provider. ADDITIONAL VIEWS LEFT DIGITAL MAMMOGRAM USING TOMOSYNTHESIS, 03/10/2024 LEFT BREAST ULTRASOUND, 03/10/2024 CLINICAL HISTORY: LEFT breast mass/asymmetry. COMPARISON: 02/24/2024. TECHNIQUE: Digital LEFT mammogram in two projections. Tomosynthesis was used in this interpretation. Real-time ultrasound imaging of LEFT breast with imaging documentation. BREAST COMPOSITION: There are scattered areas of fibroglandular density. FINDINGS: 3D spot compression CC/MLO LEFT breast mammogram images submitted. Persistent nodular density within the medial LEFT breast without architectural distortion. Benign calcifications are present. Targeted LEFT breast ultrasound performed at 8 o'clock 4 cm from the nipple. In this location, there is a hypoechoic structure measuring 8 x 5 x 9 millimeters. No distal acoustic shadowing. us Cassy MCKEON MAMMO Final R esult * (ABNORMAL) LIPID PANEL W REFLEX MEASURED LDL (08/06/2023 12:22 PM CDT) CHOLESTEROL,TOTAL 224(H) 100 - 199 mg/dL 08/06/2023 9:59 PM CDT [facility] Comment: Cholesterol, Total Reference Ranges Desirable <200 mg/dL Borderline 200-239 mg/dL High >=240 mg/dL TRIGLYCERIDES 160(H) <150 mg/dL 08/06/2023 9:59 PM CDT [facility] HDL CHOLESTEROL 70 >40 mg/dL 9:59 PM CDT [facility] NON-HDL CHOLESTEROL 154(H) <145 mg/dl 08/06/2023 9:59 PM CDT [facility] CHOL/HDL RATIO 3.20 <4.50 08/06/2023 9:59 PM CDT [facility] LDL CHOLESTEROL 122 <=130 mg/dL 08/06/2023 9:59 PM CDT [facility] VLDL CHOLESTEROL 32(H) <=30 mg/dL 08/06/2023 9:59 PM CDT [facility] PROVIDER ORDERED STATUS RANDOM 08/06/2023 9:59 PM CDT [facility] Blood BLOOD SPECIMEN / Unknown Venipuncture / Unknown 08/06/2023 12:22 PM CDT 08/06/2023 12:25 PM CDT Cassy MCKEON CHEMISTRY Final R esult [facility] [address] [place] [address], * ANTI HCV (10/22/2021 9:11 AM CDT) HEPATITIS C ANTIBODY Non-React sallie Non-React sallie 10/22/2021 6:59 PM CDT [facility] Comment:Antibodies to HCV no t detected; does not exclude the possibility of exposure to HCV. Blood BLOOD SPECIMEN / Unknown Venipuncture / Unknown 10/22/2021 9:11 AM CDT 10/22/2021 9:13 AM CDT Cassy MCKEON SEND OUTS Final R esult [facility] [address] [place] [address], [place] * OCCULT BLOOD IFOBT STOOL (09/10/2018 12:00 PM CDT) STOOL BLOOD ,IFOBT Negative Negative 09/11/2018 1:29 PM CDT [facility] Stool STOOL SPECIMEN / Unknown Non-Blood / Unknown 09/10/2018 12:00 PM CDT 09/11/2018 1:21 PM CDT [facility] MCKEON LABORATORY Final R esult [facility] [address] [place] [address], * (ABNORMAL) XR DXA BONE DENSITY 2 SITES AXIAL (04/15/2017 11:35 AM DISTRIBUTION TRANSFORMER ASSEMBLER) Anatomical Region Laterality Modality Spine, HIPS, HIPL, HIPR Other Narrative 04/18/2017 4:29 PM DISTRIBUTION TRANSFORMER ASSEMBLER Please see scanned document for results of this study. Floresita Pete NP DEXA F inal Result from Last 3 Months or Most Recently Relevant to Health Maintenance Insurance [facility] ATTN: [place] [address] WORKERS COMP [address] [place] [address] WC WORKERS COMP Advance Directives * Full Code (Latest Code Status on File) Date Activated Date Inactivated Comments 05/05/2024 9:38 AM 05/05/2024 9:06 PM Question Answer Comments Code Status Discussion: Reviewed Preferences * Full Code Date Activated Date Inactivated Comments 01/09/2015 8:59 AM 01/09/2015 1:14 PM Care Teams Beauty Sales Consultant Relationship Specialty Start Date End Date Cassy Ramírez PA [address] [place] [address] PCP - General Physician Blood Donor Unit Assistant 05/20/18 Kandace Webber, RN [address] [place] [address] Nurse Navigator - Oncology Registered Nurse 03/26/24 Modesto Singer LSW [address] [place], [place] [id number] 05/26/24 Sofia Ordoñez MD [address] [place] [address] Oncology 05/26/24 Stacie Carballo NP 200 [facility] JANICE VERMA [id number] Oncology 05/26/24
--- OUTSIDE RECORDS SUMMARY | 2024-07-21 13:20 | XMS_ITS | Encounter Summary ---
Author Organization [facility] Address [address] [place] [address] Care Team Providers Care Business Operations Specialist Name Role Phone Jodi Swain SHRUTHI Primary Care Provider [phone] Reason for Visit * Reason Comments Office Visit: Converted Data Conversion Encounter Details Date Type Department Care Team (Late st Contact Info) Description 05/27/2023 Dental Interim Note [facility] [address] [place] [address] Default, [facility] [address] [place] [address] Social History Tobacco Use Types Packs/Day Years Used Date Smoking Tobacco: Never Assessed Social Connections Answer Date Recorded Social Connections and Isolation 0 03/21/2023 Financial Resource Strain Answer Date R ecorded Financial Resource Strain 0 2022 Stress Answer Date Recorded Stress 0 03/21/2023 Physical Activity Answer Date Recorded Physical Activity 0 03/21/2023 Food Insecurity Answer Date Recorded Food 0 03/21/2023 Transportation Needs Answer Date Record ed Transportation 0 03/21/2023 Housing Stability Answer Date Recorded Housing 0 03/21/2023 Safety and Environment Answer Date Dexter rded Safety 0 03/21/2023 Utilities Answer Date Recorded Utilities 0 03/21/2023 Employment Answer Date Recorded Employment 0 03/21/2023 Comments Unknown Sex and Gender Information Value Date Recorded Sex Assigned at Not on file Legal Sex Female 12:11 PM PST Gender Identity Female 05/06/2023 3:14 PM PST Sexual Orientation Straight 05/06/2023 3: 14 PM PST documented as of this encounter Plan of Treatment Scheduled Orders Name Type Priority Associated Diagnoses Order Schedule Max COMPLETE DENTURE - MAXILLARY Dental Procedures Routine 1 Occurren koko starting 05/09/2023 Lupe COMPLETE DENTURE - MANDIBULAR Dental Procedures Routine 1 Occurrences starting 05/09/2023 documented as of this encounter Visit Diagnoses Not on filedocumented in this encounter Care Teams Business Operations Specialist Relationship Specialty Start Date End Date Jodi Swain DDS [address] [place] [address] PCP - General 05/06/23 documented as of this encounter
[2024-07-21 13:30] VITALS: BP 193/81; PULSE 98; RESP 18; TEMP 36.9; O2SAT 97; BMI 27.0
--- NOTE | 2024-07-21 13:34 | ED_ITS ---
HPI - General Adult General Chief complaint: Fall/Minor Trauma Stated complaint: fall-hurt wrist and head Time Seen by Provider: 07/21/24 13:19 History of Present Illness HPI narrative: Patient presents to the emergency department complaining of right wrist pain and a head injury. Patient got tangled in a dog leash and tripped down a flight of 3 stairs. The stairs were concrete. Denies any loss of consciousness. Denies being on blood thinners . Patient remembers the incident. Has other abrasions on elbow as well. 68-year-old woman presenting to the emergency department with concern of head injury and right arm pain after tripping and falling down 3 stairs. There was no loss of consciousness. She denies neck or back pain. Apparently got tangled in the leash of a large dog. No abdominal pain. No chest pain or shortness of breath. Related Data Home Medications ?Medication ?Instructions ?Recorded ?Confirmed metformin 1,000 mg tablet 1,000 mg PO BID 07/21/24 07/22/24 gabapentin 100 mg capsule 100 mg PO QPM 07/22/24 07/22/24 glipizide 10 mg tablet 10 mg PO BID 07/22/24 07/22/24 hydrochlorothiazide 25 mg tablet 25 mg PO DAILY 07/22/24 07/22/24 mupirocin 2 % topical ointment topical 3XD 07/22/24 07/22/24 simvastatin 40 mg tablet 40 mg PO QPM 07/22/24 07/22/24 Allergies Allergy/AdvReac Type Severity Reaction Status Date / Time No Known Drug Allergies Allergy Verified 07/22/24 08:34 Review of Systems Status of ROS: Reports: 6 or more systems reviewed and unremarkable except as noted in History and below [facility] Medical History Left elbow pain ?M25.522 - Pain in left elbow (ICD-10) Pain of lower extremity ?M79.606 - Pain in leg, unspecified (ICD-10) Foot ulcer, left ?L97.529 - Non-pressure chronic ulcer of other part of left foot with unspecified severity (ICD-10) Former smoker ?Z87.891 - Personal history of nicotine dependence (ICD-10) COVID-19 ?U07.1 - COVID-19 (ICD-10) Proximal humerus fracture ?S42.209A - Unspecified fracture of upper end of unspecified humerus, initial encounter for closed fracture (ICD-10) Malignant neoplasm of left female breast ?C50.912 - Malignant neoplasm of unspecified site of left female breast (ICD- 10) Invasive ductal carcinoma of left breast in female ?C50.912 - Malignant neoplasm of unspecified site of left female breast (ICD- 10) Cortical senile cataract of left eye ?H25.012 - Cortical age-related cataract, left eye (ICD-10) Pseudophakia, right eye ?Z96.1 - Presence of intraocular lens (ICD-10) Hyperopia of both eyes with astigmatism and presbyopia ?H52.03 - Hypermetropia, bilateral (ICD-10) ?H52.203 - Unspecified astigmatism, bilateral (ICD-10) ?H52.4 - Presbyopia (ICD-10) Arcus senilis ?H18.419 - Arcus senilis, unspecified eye (ICD-10) 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 ?E11.3211 - Type 2 diabetes mellitus with mild nonproliferative diabetic retinopathy with macular edema, right eye (ICD-10) Controlled type 2 diabetes mellitus without complication, without long-term current use of insulin ?E11.9 - Type 2 diabetes mellitus without complications (ICD-10) Osteoporosis ?M81.0 - Age-related osteoporosis without current pathological fracture (ICD- 10) Onychomycosis ?B35.1 - Tinea unguium (ICD-10) Venous insufficiency ?I87.2 - Venous insufficiency (chronic) (peripheral) (ICD-10) HTN (hypertension) ?I10 - Essential (primary) hypertension (ICD-10) Surgical History History of open reduction and internal fixation (ORIF) procedure ?Z98.890 - Other specified postprocedural states (ICD-10) History of cataract surgery (12/29/23) ?Z98.49 - Cataract extraction status, unspecified eye (ICD-10) H/O lumpectomy (05/05/24) ?Z98.890 - Other specified postprocedural states (ICD-10) Social History Smoking Status: Never smoker Do you use any of these nicotine containing products: None Second hand tobacco smoke exposure: No Exam Narrative: Exam Narrative: Dried blood about the left side of her face and back of her neck. She is very pleasant. Fully alert. GCS 15. Cranial nerves 2-12 intact. Pupils are equal briskly reactive. After cleansing on the posterior left upper occipital scalp able to visualize a full dermal 1-1/4 inch laceration that is gapping lightly. Neck is supple nontender. Back nontender. She is breathing easily. No pain to palpation over the clavicles or shoulders. She is protecting her right arm. On the extensor surface of the left proximal forearm there is mild swelling which apparently is chronic. Light abrasions over the left forearm burn no pain. The right forearm however appears to have some other swelling. Is generally tender to palpation and she is resistant to open and close her right hand I believe due to pain. Strong and equal radial pulses. Right extensor forearm also with some light abrasion. Abdomen is soft nontender. Lower extremities appear to be without injury. Const: Vital Signs, click to edit/add: Vital Signs - 24 hr 07/21/24 13:30 Temperature 98.5 F Pulse Rate [Right Pulse Oximeter] 98 Respiratory Rate 18 Blood Pressure [Le ft Upper Arm] 193/81 H Pulse Oximetry 97 Oxygen Delivery Me thod Room Air Documenting provider has reviewed patient's vital signs: yes Course Vital Signs Vital signs: Initial Vital Signs Temperature 98.5 F 07/21/24 13:30 Temperature Source Temporal Artery Scan 07/21/24 13:30 Pulse Rate 98 07/21/24 13:30 Pulse Rhythm Regular 07/21/24 13:30 Pulse Strength 3+ Normal 07/21/24 13:30 Respiratory Rate 18 07/21/24 13:30 Blood Pressure 193/81 H 07/21/24 13:30 Blood Pressure Mean 118 H 07/21/24 13:30 Blood Pressure Position Sitting 07/21/24 13:30 Pulse Oximetry 97 07/21/24 13:30 Oxygen Delivery Method Room Air 07/21/24 13:30 Vital Signs Temperature 98.5 F 07/21/24 13:30 Pulse Rate 98 07/21/24 13:30 Respiratory Rate 18 07/21/24 13:30 Blood Pressure 193/81 H 07/21/24 13:30 Pulse Oximetry 97 07/21/24 13:30 Oxygen Delivery Method Room Air 07/21/24 13:30 Temperature 98.5 F 07/21/24 13:30 Pulse Rate 98 07/21/24 13:30 Respiratory Rate 18 07/21/24 13:30 Blood Pressure 193/81 H 07/21/24 13:30 Pulse Oximetry 97 07/21/24 13:30 Oxygen Delivery Method Room Air 07/21/24 13:30 Medications Administered Medications: Discontinued Medications Generic Name Dose Route Start Last Admin Trade Name Freq PRN Reason Stop Dose Admin Hydrocodone Bitart/Acetaminophen 2 tab 07/21/24 13:47 07/21/24 14:19 Hydrocodone-Acetamin 5-325 Mg 1 Tab PO 07/21/24 13:48 2 tab ONCE ONE Administration Ibuprofen 400 mg 07/21/24 13:47 07/21/24 14:19 Ibuprofen 200 Mg Tablet PO 07/21/24 13:48 400 mg ONCE ONE Administration Medical Decision Making [facility] Narrative Medical decision making narrative: Given injury would scan her head. Scores 1 on nexus cervical spine rule. I think we can defer C-spine imaging however. She is clearly without tenderness. Would also image right forearm. Would suspect fracture here. She would appreciate something for pain. Discussed IV or IM versus oral. She would prefer oral pain medication. Given ibuprofen and 2 tabs of [place]. On reassessment for pain it is improved still present but appears to be tolera ble. Two-view of the right forearm independently reviewed by me shows both-bone forearm fracture: Mid radius and distal ulna. The ulna appears to be mildly comminuted; both with a little displacement. I would anticipate need for surgical intervention. INDICATION: Right forearm injury, fall TECHNIQUE: Forearm radiograph 2 views right COMPARISON: None FINDINGS: Bone: Displaced fractures of the mid radial and distal ulnar diaphyses are present. Moderate diffuse osteopenia is present. Joint: Mild osteoarthritis of the radiocarpal joint is present with chondrocalcinosis. Mild osteoarthritis of the elbow joint is seen. No significant elbow effusion is seen. Soft tissue: Unremarkable. No radiopaque foreign bodies are seen. Moderate vascular calcifications are noted. IMPRESSION: 1. Displaced fractures of the mid radial and distal ulnar diaphyses are present. Dictated by Mauri South MD @ 07/21/2024 11:45:[address] head noncontrast independently reviewed by me looks to be without acute injury other than swelling of the scalp. Radiology over-read noting some small chronic infarcts INDICATION: Fall, head trauma. TECHNIQUE: Noncontrast CT of the head with multiplanar reconstruction utilizing bone and soft tissue algorithms. COMPARISON: None available. FINDINGS: Motion degraded exam. No acute intracranial hemorrhage. Scattered hypoattenuation within the supratentorial matter nonspecific but typical of mild chronic small vessel ischemic changes. Chronic lacunar type infarct within the right basal ganglia. Additional probable small chronic infarct in left inferior cerebellum. Mild diffuse parenchymal volume loss. No ventricular obstruction. No convincing abnormal extra-axial fluid collection. Small left parietal scalp hematoma. No underlying calvarial fracture. Bilateral pseudophakia. The imaged paranasal sinuses and mastoid air cells are clear. IMPRESSION: 1. No acute intracranial abnormality. 2. Left parietal scalp hematoma. No underlying calvarial fracture. 3. Mild diffuse parenchymal volume loss and chronic small vessel ischemic changes. 4. Small chronic infarcts within the right basal ganglia and the left inferior cerebellum. Please note that all CT scans at this facility use dose modulation, iterative reconstruction, and/or weight-based dosing when appropriate to reduce radiation dose to as low as reasonably achievable. Dictated by Manuel Curtis MD @ 07/21/2024 2:28:20 PM I discussed these findings with Leslie and her family. I would like her to follow up. She does have diabetes and hypertension. Both of these might be contributing to findings in CT imaging. I would think that she should be on low-dose aspirin. However I would anticipate imminent forearm surgery. I did reach out to Orthopedics for next steps in care. Would like to be scheduled tomorrow in clinic. Returned to stable her head following clean. This was accomplished without anesthesia. Very good wound approximation achieved with placement of 3 brody. Tolerated well. Placed a sugar-tong splint on the right forearm and given arm sling. See patient discharge plan for further discussion Go ahead and clean up, shower or bathe however you want tonight. After that you can get your head wet but avoid soaking your head/laceration until brody are out. Remove the brody in about 8 days. Can take up to 400 mg of ibuprofen or up to 850 mg of acetaminophen per dose. These can be combined. I am prescribing you some [place] from [facility]. As discuss this is an opiate and as such can make you tired or constipated. It also contains 325 mg of acetaminophen in each tablet. Consider taking senna containing bowel aid once or twice daily on the days you might be taking this [place]. Follow up Orthopedic appointment is scheduled on 07/22 with a 9:10am appointment time with Dr. Oro. Please check in at 8:40am to complete paperwork. Please bring your photo ID and insurance information. If you have any questions or need to reschedule, please call [phone]. [facility] [address] [address] Please take this disc of images obtained today of your head. I would like you to follow-up for review these images with your primary care provider and to make a plan for further evaluation or treatment at that time. Medical Records Medical records reviewed: Yes I reviewed the patient's medical records Discharge Plan Discharge Clinical Impression: Closed head injury, Laceration of scalp, Forearm fractures, both bones, closed Patient Disposition: Home w/ Parent or Adult Condition: Improved Additional Instructions: Go ahead and clean up, shower or bathe however you want tonight. After that you can get your head wet but avoid soaking your head/laceration until brody are out. Remove the brody in about 8 days. Can take up to 400 mg of ibuprofen or up to 850 mg of acetaminophen per dose. These can be combined. I am prescribing you some [place] from [facility]. As discuss this is an opiate and as such can make you tired or constipated. It also contains 325 mg of acetaminophen in each tablet. Consider taking senna containing bowel aid once or twice daily on the days you might be taking this [place]. Follow up Orthopedic appointment is scheduled on 07/22 with a 9:10am appointment time with Dr. Oro. Please check in at 8:40am to complete paperwork. Please bring your photo ID and insurance information. If you have any questions or need to reschedule, please call [phone]. [address] [address] Please take this disc of images obtained today of your head. I would like you to follow-up for review these images with your primary care provider and to make a plan for further evaluation or treatment at that time. Adelante, l?mpiate, d?chate o b??ate betty quieras esta noche. Despu?s, puedes mojarte la judie, karmen matthias mojarla o lacerarla hasta que te quiten las gr apas. Qu?jay las grapas en unos 8 d?as. Puedes rom hasta 400 mg de ibuprofeno o hasta 850 mg de acetaminof?n por dosis. Se pueden combinar. Te recetar? [place] de [facility] [place] ya comentamos, es un opi?pest control service representative y, por lo tanto, puede causarte cansancio o estre?imiento. Tambi?n contiene 325 mg de acetaminof?n en cada tableta. Considera rom un producto para el intestino con sen nicole o dos veces al d?a los d?as que tomes [place]. La valdez de seguimiento con el ortopedista est? programada para el a las 9:[address] el [address] Oro. Por favor, reg?strate a las 8:40 a. m. para completar la documentaci?n. Marc tu identificaci?n con foto y la informaci?n de tu seguro m?dico. Si tiene alguna pregunta o necesita reprogramar cherry valdez, llame al [phone]. [facility] [place] [address] [place] [address] Por favor, tome kae disco con las im?genes de cherry judie obtenidas hoy. Me gustar?a que se reuniera con cherry m?dico de cabecera para revisarlas y planificar nicole evaluaci?n o tratamiento adicional en keila momento. Prescriptions: No Action hydrochlorothiazide 25 mg tablet 25 mg PO DAILY gabapentin 100 mg capsule 100 mg PO QPM simvastatin 40 mg tablet 40 mg PO QPM glipizide 10 mg tablet 10 mg PO BID mupirocin 2 % ointment topical 3XD metformin 1,000 mg tablet 1,000 mg PO BID Follow Up/Referrals: Cassy Ramírez PA-C [Primary Care Provider] - Stand Alone Forms: [facility] Info Instructions
--- NOTE | 2024-07-21 13:47 | CRLHL7_ITS ---
For Patients: As a result of the Century Cures Act, medical imaging exams and procedure reports are released immediately into your electronic medical record. You may view this report before your referring provider. If you have questions, please contact your health care provider. INDICATION: Fall, head trauma. TECHNIQUE: Noncontrast CT of the head with multiplanar reconstruction utilizing bone and soft tissue algorithms. COMPARISON: None available. FINDINGS: Motion degraded exam. No acute intracranial hemorrhage. Scattered hypoattenuation within the supratentorial matter nonspecific but typical of mild chronic small vessel ischemic changes. Chronic lacunar type infarct within the right basal ganglia. Additional probable small chronic infarct in left inferior cerebellum. Mild diffuse parenchymal volume loss. No ventricular obstruction. No convincing abnormal extra-axial fluid collection. Small left parietal scalp hematoma. No underlying calvarial fracture. Bilateral pseudophakia. The imaged paranasal sinuses and mastoid air cells are clear. IMPRESSION: 1. No acute intracranial abnormality. 2. Left parietal scalp hematoma. No underlying calvarial fracture. 3. Mild diffuse parenchymal volume loss and chronic small vessel ischemic changes. 4. Small chronic infarcts within the right basal ganglia and the left inferior cerebellum. Please note that all CT scans at this facility use dose modulation, iterative reconstruction, and/or weight-based dosing when appropriate to reduce radiation dose to as low as reasonably achievable. Dictated by Manuel Curtis MD @ 07/21/2024 2:28:20 PM (Electronically Signed)
--- NOTE | 2024-07-21 13:47 | CRLHL7_ITS ---
For Patients: As a result of the Cures Act, medical imaging exams and procedure reports are released immediately into your electronic medical record. You may view this report before your referring provider. If you have questions, please contact your health care provider. INDICATION: Right forearm injury, fall TECHNIQUE: Forearm radiograph 2 views right COMPARISON: None FINDINGS: Bone: Displaced fractures of the mid radial and distal ulnar diaphyses are present. Moderate diffuse osteopenia is present. Joint: Mild osteoarthritis of the radiocarpal joint is present with chondrocalcinosis. Mild osteoarthritis of the elbow joint is seen. No significant elbow effusion is seen. Soft tissue: Unremarkable. No radiopaque foreign bodies are seen. Moderate vascular calcifications are noted. IMPRESSION: 1. Displaced fractures of the mid radial and distal ulnar diaphyses are present. Dictated by Mauri South MD @ 07/21/2024 11:45:26 PM Dictated by: Mauri South MD @ 07/21/2024 23:45:29 (Electronically Signed)
[2024-07-21] MEDS: IBUPROFEN 200 MG TABLET 400 MG PO (14:19)
[2024-07-21] MEDS: HYDROCODONE-ACETAMIN 5-325 MG 1 TAB 2 TAB PO (14:19)
--- OUTSIDE RECORDS SUMMARY | 2024-07-21 15:35 | XMS_ITS | Encounter Summary ---
Author Organization [facility] Address [address] [place] [address] Care Team Providers Care Traffic Court Referee Name Role Phone Jodi Swain SHRUTHI Primary Care Provider [phone] Reason for Visit * Reason Comments Office Visit: Converted Data Conversion Encounter Details Date Type Department Care Team (Late st Contact Info) Description 05/27/2023 Dental Interim Note [facility] [address] [place] [address] Default, [facility] [address] [place] [address] Social History Tobacco Use Types Packs/Day Years [...] on filedocumented in this encounter Care Teams Traffic Court Referee Relationship Specialty Start Date End Date Jodi Swain DDS [address] [place] [address] PCP - General 05/06/23 documented as of this encounter
--- OUTSIDE RECORDS SUMMARY | 2024-07-21 15:35 | XMS_ITS | Clinical Summary ---
Author Organization [facility] Address [address] [place] [address] Care Team Providers Care Veterans Rehabilitation Counselor Name Role Phone Jodi Swain DDS Primary Care Provider [phone] Source Comments PLEASE NOTE, if this patient [...] Bone Density Screening 2021 Falls Prevention 2021 [id number] ( season) 2023 Imm-Influenza (#1) 2023 Alcohol and Drug Screen 04/07/2024 Depression Annual Screen 04/07/2024 Diabetes Screening 06/08/2027 06/07/2024, 1 04/12/2023, 11/11/2023, Additional history exists Care Teams Veterans Rehabilitation Counselor Relationship Specialty Start Date End Date Jodi Swain DDS [address] [place] [address] PCP - General 05/06/23
== END 2024-07-21 16:12 | disposition home or self-care (01) ==
PROVIDERS: Emergency Provider Family Medicine; PCP Physician Assistant Medical
DX: S01.01XA Laceration without foreign body of scalp, initial encounter (principal); S52.351A Displaced comminuted fracture of shaft of radius, right arm, initial encounter for closed fracture; S52.601A Unspecified fracture of lower end of right ulna, initial encounter for closed fracture; W10.8XXA Fall (on) (from) other stairs and steps, initial encounter; Y93.89 Activity, other specified; Y92.008 Other place in unspecified non-institutional (private) residence as the place of occurrence of the external cause
CPT/HCPCS: 12001; 70450; 73090; 99284; T1013; A9270

== ENCOUNTER 2024-07-28 06:07 | Day surgery (SDC) | payer OTHER, SELFPAY ==
[2024-07-28] VITALS (7 sets, daily range): BP systolic 125–158; BP diastolic 61–73; PULSE 62–84; RESP 12–18; TEMP 36.1–36.5; O2SAT 94–98; BMI 24.3
[2024-07-28] MEDS: LACTATED RINGERS 1000 ML 1,000 ML 100 ML IV (06:40)
[2024-07-28] MEDS: SODIUM CHLORIDE 0.9 % (FLUSH) 10 ML SYRINGE IVF (06:46)
--- NOTE | 2024-07-28 06:46 | P.ORPRC_ITS ---
Procedure Note Date of procedure: 07/28/24 Procedure: PREOPERATIVE DIAGNOSES: 1. Right both-bone forearm fracture, closed, displaced POSTOPERATIVE DIAGNOSES: 1. Right both-bone forearm fracture, closed, displaced NAME OF OPERATION: 1. Right radial shaft open reduction with internal fixation 2. Right distal ulnar shaft open reduction internal fixation SURGEON: Isaiah Morelos MD ASSOCIATE PROFESSOR OF FORESTRY: Ghada Rose - An assistant general manager was critical for this case to aide in patient positioning, limb manipulation, tissue retraction, wound closure, and splinting. ANESTHESIA: General with axillary nerve block IMPLANTS: Arthrex 3.5 mm locking compression plate, 8 hole; Arthrex 2.7 mm locking plate, 10 hole TOURNIQUET TIME: 126 minutes at 250 mmHg ESTIMATED BLOOD LOSS: 40 mL INDICATIONS: The patient is a pleasant, 68-year-old female who sustained a closed, displaced both-bone forearm fracture approximately 1 week ago. Workup included x-rays which revealed an unstable fracture. Given these findings, surgery was recommended to stabilize the fractures to allow for healing in a more anatomic position. Prior to surgery the risks and benefits of the procedure were discussed with patient all questions were answered and informed consent was obtained. FINDINGS: Closed, displaced, oblique, midshaft radius fracture. Closed, displaced, comminuted, distal ulna shaft fracture PROCEDURE: Patient was seen preoperatively and surgical site was marked. An axillary nerve block was performed by anesthesia staff. The patient was then brought to the operating room and placed supine on the operating table. Induction of anesthesia was achieved, and patient was provided with 1 g IV Ancef preoperatively for prophylaxis. A tourniquet was placed on the patient's right upper arm. The operative extremity was prepped and draped in usual sterile fashion. A surgical time-out was performed confirming patient identity surgical site and surgical procedure. The operative extremity was exsanguinated with an esmarch, and the tourniquet was inflated to 250 mmHg. Attention was 1st directed to fixation of the radial shaft fracture. A longitudinal skin incision was made over the mid radial volar forearm. Blunt dissection was used to dissect through the subcutaneous tissues. Branches of the lateral antebrachial cutaneous nerve were identified and protected throughout the course of the procedure. The interval between the brachioradialis and FCR muscles was developed. Deep to the brachioradialis, superficial branch of the radial nerve and the radial artery were identified. These were retracted laterally and were protected throughout the course procedure. The pronator teres and flexor pollicis longus were released from the lateral border of the radius and retracted medially to expose the radial shaft and radial shaft fracture. The fracture was cleared of interposed periosteum and fracture hematoma. The wound was then irrigated copious amounts of normal saline. Fracture was then reduced and held provisionally with a reduction clamp. We then attempted to place a 2.7 mm lag screw, however the screw did not obtain good purchase and was removed. An 8 hole 3.5 mm locking compression plate was then selected and contoured to fit on the volar aspect of the radial shaft. This was provisionally fixed with BB tacks. Fluoroscopic imaging was obtained which showed good plate placement and anatomic reduction of the fracture. The plate was then fixed proximally and distally with 3.5 mm bicortical nonlocking locking screws followed by placement of 3.5 mm locking screws. Six cortices of purchase were obtained proximal and distal the fracture. Fluoroscopic imaging was obtained in AP and lateral planes to confirm appropriate plate position and screw length. Wound was again irrigated with normal saline. The pronator teres and flexor pollicis longus were reapproximated to their insertion using 2-0 Vicryl [id number] interrupted sutures. Attention was then directed to fixation of the ulnar shaft. A longitudinal incision centered over the ulnar fracture site was made just volar to the ulnar border of the distal forearm. Blunt dissection was used to dissect through subcutaneous tissues. Superficial branch of the ulnar nerve was encountered and protected throughout the course of the procedure. Deep fascia between the ECU and FCU muscles was divided and subcutaneous border of the ulna was identified. Subperiosteal dissection was performed to expose the volar ulnar shaft. The fracture was identified, cleared of interposed periosteum and fracture hematoma. Wound was irrigated with normal saline. During this portion of the case, we had reached 2 hours and 6 minutes of tourniquet time. Tourniquet time was released. Hemostasis was achieved with electrocautery. Fracture was noted to be comminuted but was brought out to length and provisionally held with a reduction clamp. A 10 hole 2.7 mm locking plate was selected and contoured to fit the distal volar border of the ulna. It was then fixed and held provisionally with BB tacks. Fluoroscopic imaging confirmed satisfactory reduction of the ulnar fracture and good placement of the plate. Plate was then fixed proximally with a 2.7 mm bicortical nonlocking screw and distally with a 2.7 mm bicortical locking screw. Bb tacks were removed. 2 bicortical proximal locking screws were placed followed by the placement of 1 bicortical and 1 unicortical 2.7 mm locking screw distally. Due to the comminution and limited space distally, only 2 bicortical screws could be placed distally. Following placement of screws, fluoroscopic images were taken in AP and lateral planes confirming satisfactory reduction of the fracture and good placement of the plate and screws. Forearm was supinated and pronated wrist was flexion extended and there was noted to be good stability at the fracture sites. The deep fascia was reapproximated with 2-0 Vicryl ukymqs-nt-gigso interrupted sutures. Wounds were then again irrigated with normal saline. Skin incisions were closed with 2-0 Vicryl inverted up subcutaneous stitches, 2-0 Stratafix, and 3-0 running nylon stitches. Sterile dressings were applied followed by the application of a well-padded sugar-tong splint. The patient was awoken from anesthesia and transferred to PACU in stable condition. PLAN: 1. Elevate operative extremity. 2. Ice, acetaminophen or ibuprofen PRN. 3. [place] as needed for more severe pain 4. Follow up in [facility] in 10-14 days for wound check and splint removal. -Will convert to a removable forearm brace at 1st postoperative visit. -nonweightbearing right upper extremity for 6 weeks.
--- NOTE | 2024-07-28 06:46 | W.PM.H&PU ---
History & Physical Update History & Physical Update H&P Reviewed and patient assessed: No changes noted
--- NOTE | 2024-07-28 07:09 | SUR.PREOP ---
TIME?OUT:?0709 PT/RN/MDA?VERIFICATION?OF?SURGICAL?SITE,?PROCEDURE,?AND?CONSENT OBTAINED?PRIOR?TO?INVASIVE?PROCEDURE.
[2024-07-28] MEDS: fentaNYL 100 MCG/2 ML inj IVP (07:11)
[2024-07-28] MEDS: MIDAZOLAM HCL 1 MG/ML inj IVP (07:11)
--- NOTE | 2024-07-28 07:15 | CRLHL7_ITS ---
For Patients: As a result of the Cures Act, medical imaging exams and procedure reports are released immediately into your electronic medical record. You may view this report before your referring provider. If you have questions, please contact your health care provider. Indication: Right Midshaft Ulna Radius Open Reduction Technique: Five fluoroscopic images of the right forearm. Fluoroscopic time 34.8 seconds. IMPRESSION: Fluoroscopic guidance for open reduction internal fixation of fractures involving the mid radial diaphysis and distal ulnar diaphysis. Dictated by Kei Ram MD @ 07/28/2024 11:12:10 AM (Electronically Signed)
[2024-07-28] MEDS: INSULIN REGULAR, HUMAN 100 UNIT/ML VIAL 10 UNIT SUBCUT (07:24)
[2024-07-28] MEDS: CEFAZOLIN 1 GM inj IVP (07:35)
--- NOTE | 2024-07-28 09:08 | W.PM.NB ---
Nerve Block Nerve Block Time Seen by Provider: 07:13 Date Seen: 07/28/24 Type of block requested by surgeon for post-operative analgesia: axillary Side: right Time out performed: Yes Verification of patient name: Yes Verification of date of : Yes Site marking: site marked Name of person performing procedure: Renzo Continuous monitoring Was continuous monitoring of O2 sat, B/P, site monitor, recorded every 15 minutes?: Yes Procedure Checklist: sterile prep, needles and gloves Ultrasound guided. Images saved: Yes Medications given in 5ml increments after negative aspiration: Ropivicaine %: 0.5 mL: 30 Needle gauge: 22 Patient tolerated procedure well: Yes Additional comments: Needle noted adjacent to nerve Block Charges Block Charge (with Pro Fee): Brachial Plexus Use of Ultrasound Machine for Block: Yes- US Guidance/pain block
--- NOTE | 2024-07-28 09:09 | P.ANES_ITS ---
Anesthesia Charges Start Date/Time Anesthesia Start Date: 07/28/24 Anesthesia Start Time: 07:28 Stop Date/Time Anesthesia Stop Date: 07/28/24 Anesthesia Stop Time: 11:50 Coding CPT Codes CPT Codes: ANESTH LOWER ARM SURGERY - 35177 ([id number]) P3 - PATIENT W/SEVERE SYS DISEASE, QK - CLINIC LEAD 2-4 CNCRNT ANES PROC, QX - SAP ENTERPRISE PORTAL CONSULTANT SVC W/ MD MED DIRECTION
--- NOTE | 2024-07-28 09:09 | W.ANESCHARGE ---
Anesthesia Charges Start Date/Time Anesthesia Start Date: 07/28/24 Anesthesia Start Time: 07:28 Stop Date/Time Anesthesia Stop Date: 07/28/24 Anesthesia Stop Time: 11:50 Coding CPT Codes CPT Codes: ANESTH LOWER ARM SURGERY - 03926 ([id number]) P3 - PATIENT W/SEVERE SYS DISEASE, QK - SUPERVISOR IN CHARGE 2-4 CNCRNT ANES PROC, QX - DOCK MANAGER SVC W/ MD MED DIRECTION
--- NOTE | 2024-07-28 11:17 | SUR.OPER ---
Three brody removed from left parietal scalp of patient by Capo Pham RN.
--- NOTE | 2024-07-28 11:49 | P.ANES_ITS ---
Anesthesia Charges Start Date/Time Anesthesia Start Date: 07/28/24 Anesthesia Start Time: 07:28 Stop Date/Time Anesthesia Stop Date: 07/28/24 Anesthesia Stop Time: 11:50 Coding CPT Codes CPT Codes: ANESTH LOWER ARM SURGERY - 50413 ([id number]) P3 - PATIENT W/SEVERE SYS DISEASE, QK - OIL DIPPER 2-4 CNCRNT ANES PROC, QX - FIGHTER PILOT SVC W/ MD MED DIRECTION
--- NOTE | 2024-07-28 11:49 | W.ANESCHARGE ---
Anesthesia Charges Start Date/Time Anesthesia Start Date: 07/28/24 Anesthesia Start Time: 07:28 Stop Date/Time Anesthesia Stop Date: 07/28/24 Anesthesia Stop Time: 11:50 Coding CPT Codes CPT Codes: ANESTH LOWER ARM SURGERY - 80870 ([id number]) P3 - PATIENT W/SEVERE SYS DISEASE, QK - STOREKEEPER STEWARD 2-4 CNCRNT ANES PROC, QX - KNITTING SUPERVISOR SVC W/ MD MED DIRECTION
== END 2024-07-28 13:06 | disposition home or self-care (01) ==
LOC: OR 06:10
PROVIDERS: PCP Physician Assistant Medical; Visit Provider Orthopaedic Surgery
PROC: (CPT 25575; principal; 2024-07-28 07:15)
DX: S52.391A Other fracture of shaft of radius, right arm, initial encounter for closed fracture (principal); S52.291A Other fracture of shaft of right ulna, initial encounter for closed fracture; G89.18 Other acute postprocedural pain; E11.3291 Type 2 diabetes mellitus with mild nonproliferative diabetic retinopathy without macular edema, right eye; Z79.84 Long term (current) use of oral hypoglycemic drugs; I10 Essential (primary) hypertension; Z71.0 Person encountering health services to consult on behalf of another person; Z60.3 Acculturation difficulty; E78.5 Hyperlipidemia, unspecified
CPT/HCPCS: 25575; 01830; 64415; 73110; 76000; 76942; 82962; T1013; C1713; J0690; J1100; J1171; J1815; J2250; J2405; J2704; J2795; J3010; J3490; J7120; L3670

== ENCOUNTER 2024-08-26 15:15 | Outpatient (RCR) | payer OTHER, SELFPAY | END 2024-12-24 23:59 | disposition home or self-care (01) | PROVIDERS: PCP Physician Assistant Medical; Visit Provider Podiatrist | DX: M79.606 Pain in leg, unspecified (principal); R29.898 Other symptoms and signs involving the musculoskeletal system; Z51.89 Encounter for other specified aftercare | CPT/HCPCS: 97110; 97112; 97162; 97530; T1013 ==